=== PATIENT | female | born 1980 | race Caucasian/White ===

== ENCOUNTER → 2016-06-06 | Outpatient (CLI) | payer OTHER ==
[~2016-06-06] MED LIST: FLEXERIL10 MG PO; MEDROL4 MG/DOSE- PO; NO MEDICATIONS; VICODIN PO; VOLTAREN75 MG PO
--- NOTE | ~2016-06-06 | US6 ---
[facility]. [facility] A Service of [facility] & [facility] / [facility] RADIOLOGY TEXT RESULTS PATIENT: ALMAS GOMEZ LOCATION: [place] : 76 UNIT #: [id number] AGE: [address]: Ilsa Mejia APRN SEX: F ORDER DR: [id number] [address] [address] [id number] O MR#: [id number] Acc #: [id number] NAME: ALMAS GOMEZ : 1980 SEX: F STUDY DATE/TIME: 06/06/2016 9:28 UNIT: SGUS ROOM: STUDY DESCRIPTION: US Abdominal Limited Attending Physician: Ilsa Mejia A.P.R.N. Referring Physician: Ilsa Mejia A.P.R.N. Ordering Physician: Ilsa Mejia A.P.R.N. Primary Care Physician: Lela Key M.D. MEDICAL IMAGING REPORT This report is preliminary unless electronic signature is present. EXAM Right upper quadrant abdominal ultrasound INDICATIONS Elevated liver enzyme levels, noticed 2 weeks ago. PROCEDURE Cox-scale and Doppler imaging right margin of the abdomen. COMPARISON None. FINDINGS Visualized portions of pancreas unremarkable. Liver measures 13.7 cm. Common duct measures 3 mm. Unremarkable gallbladder. Right kidney measures 12 cm. No hydronephrosis. IMPRESSION Negative right upper quadrant abdominal ultrasound. Dictated by... Ney Hannon M.D. THIS IS AN ELECTRONICALLY VERIFIED REPORT Ney Hannon M.D. at 06/07/2016 6:50 AM Vicky TD: 06/06/2016 13:02 JOB #: [id number] MEDICAL IMAGING REPORT Page 1 of 1
--- NOTE | ~2016-06-06 | MR113 ---
[facility] A Service of [facility] & [facility] RADIOLOGY TEXT RESULTS PATIENT: ALMAS GOMEZ LOCATION: [facility] : 76 UNIT #: [id number] AGE: [address]: Ilsa Mejia APRN SEX: F ORDER DR: [id number] [address] [address] [id number] O MR#: [id number] Acc #: [id number] NAME: ALMAS GOMEZ : 1980 SEX: F STUDY DATE/TIME: 06/06/2016 17:57 UNIT: [facility] ROOM: STUDY DESCRIPTION: MR Lumbar Wo Contrast Attending Physician: Ilsa Mejia A.P.R.N. Referring Physician: Ilsa Mejia A.P.R.N. Ordering Physician: Ilsa Mejia A.P.R.N. Primary Care Physician: Lela Key M.D. MEDICAL IMAGING REPORT This report is preliminary unless electronic signature is present. EXAM MRI of the lumbar spine without contrast dated 06/06/2016 COMPARISON MRI lumbar spine without contrast dated 01/03/2007 HISTORY Low back pain with left-sided radiculopathy for years. Progressively worsening the last year. Limited range of movement. FINDINGS Multisequence multiplanar imaging of the lumbar spine was obtained without contrast. Vertebral body heights and alignment are preserved. Heterogeneous fatty marrow conversion is seen. Intervertebral disc heights are intact. Conus terminates at upper L1. Signal of conus and cauda equina are within normal limits. Pre and paravertebral soft tissues do not demonstrate any significant abnormality. Minimal disc bulges are noted from L3-4 to L5-S1 with small central protrusion at L5-S1. No canal stenosis. Mild inferior bilateral L4-5 and L3-4 neural foraminal encroachment is seen without neural foraminal narrowing or nerve impingement. Minimal facet changes are suspected in bilateral L4-5. IMPRESSION 1. Minimal disc bulge if any is seen in the L3-4 to L5-S1 levels. 2. Small central protrusion at L5-S1. 3. No significant canal stenosis or neural foraminal narrowing with nerve impingement. Dictated by... [facility] A Service of [facility] & [facility] RADIOLOGY TEXT RESULTS PATIENT: ALMAS GOMEZ LOCATION: [facility] : 76 UNIT #: [id number] AGE: [address]: Ilsa Mejia APRN SEX: F ORDER DR: Alyssia Linton M.D. THIS IS AN ELECTRONICALLY VERIFIED REPORT Alyssia Linton M.D. at 06/08/2016 3:00 PM DILMA/evon TD: 06/07/2016 09:32 JOB #: [id number] MEDICAL IMAGING REPORT Page 1 of 1
== END | disposition home or self-care (01) ==
LOC: SGUS 08:46
DX: R74.8 Abnormal levels of other serum enzymes (principal); M51.86 Other intervertebral disc disorders, lumbar region; M51.26 Other intervertebral disc displacement, lumbar region; M54.9 Dorsalgia, unspecified
CPT/HCPCS: 72148; 76705

== ENCOUNTER → 2016-09-13 | Outpatient (CLI) | payer OTHER ==
--- NOTE | ~2016-09-13 | US6 ---
[facility] A Service of [facility] & [facility] RADIOLOGY TEXT RESULTS PATIENT: ALMAS GOMEZ LOCATION: [place] : 76 UNIT #: [id number] AGE: [address]: Lela Key MD SEX: F ORDER DR: [id number] [address] [address] [id number] O MR#: [id number] Acc #: [id number] NAME: ALMAS GOMEZ : 1980 SEX: F STUDY DATE/TIME: 09/13/2016 8:17 UNIT: SGUS ROOM: STUDY DESCRIPTION: US Abdominal Limited Attending Physician: Lela Key M.D. Referring Physician: Lela Key M.D. Ordering Physician: Lela Key M.D. Primary Care Physician: Lela Key M.D. MEDICAL IMAGING REPORT This report is preliminary unless electronic signature is present. EXAM Right upper quadrant ultrasound HISTORY Chronic epigastric pain, increased for 3 weeks. FINDINGS Ultrasound examination of the right upper quadrant demonstrates no hepatic mass or biliary dilatation. Gallbladder is unremarkable. No gallstones or gallbladder wall thickening. Survey of the right kidney is unremarkable. The partly visualized pancreas is unremarkable. The pancreatic head and tail are incompletely visualized. No ascites in the right upper quadrant. IMPRESSION Normal ultrasound examination of the right upper quadrant. Dictated by... Martin Hagen M.D. THIS IS AN ELECTRONICALLY VERIFIED REPORT Martin Hagen M.D. at 09/14/2016 11:39 PM GABRIELLE/concepcion TD: 09/13/2016 23:28 JOB #: [id number] MEDICAL IMAGING REPORT Page 1 of 1
== END | disposition home or self-care (01) ==
LOC: SGUS 08:01
DX: R10.13 Epigastric pain (principal)
CPT/HCPCS: 76705